=== PATIENT | female | born 1960 | race Asian ===

== ENCOUNTER 2019-09-08 08:09 | Day surgery (SDC) | payer OTHER ==
[~2019-09-08] VITALS: Ht 170.2 cm; Wt 52.2 kg
[2019-09-08] MEDS ORDERED: fentaNYL 0.05 MG/ML VIAL ONE (10:59)
[2019-09-08] MEDS ORDERED: MIDAZOLAM 2 MG/2 ML VIAL ONE (11:00)
[2019-09-08] MEDS ORDERED: MIDAZOLAM 2 MG/2 ML VIAL IVP ONE (11:23)
== END 2019-09-08 12:05 | disposition home or self-care (01) ==
LOC: MOR 08:09 → MMU 08:14 → MOR 12:05
PROVIDERS: ATTEND Internal Medicine Gastroenterology
DX: R10.13 Epigastric pain (principal); K22.2 Esophageal obstruction; R07.89 Other chest pain
CPT/HCPCS: 43235; J2250; J3010